=== PATIENT | female | born 1975 | race African-American/Black ===

== ENCOUNTER → 2016-10-23 | Outpatient (CLI) | payer OTHER ==
[~2016-10-23] MED LIST: ABILIFY PO; VITAMIN B12 PO
== END | disposition home or self-care (01) ==
LOC: CSSDAY 12:00
DX: D50.0 Iron deficiency anemia secondary to blood loss (chronic) (principal); N92.0 Excessive and frequent menstruation with regular cycle; K90.9 Intestinal malabsorption, unspecified
CPT/HCPCS: 36415; 36430; 86850; 86900; 86901; 86923; 96374; J1200; J1940; P9016; Q0138

== ENCOUNTER 2016-10-26 16:34 | Emergency (ER) | payer OTHER ==
--- NOTE | ~2016-10-26 | US84 ---
[id number] [facility] [address] [place], [place] [address] [id number] E MR#: [id number] Acc #: [id number] NAME: SUYAPA CARRERA : 1975 SEX: F STUDY DATE/TIME: 10/26/2016 19:35 UNIT: [facility] ROOM: STUDY DESCRIPTION: US LE Veins Complete Shon Stdy Attending Physician: Josué Lizama M.D. Ordering Physician: Josué Lizama M.D. Primary Care Physician: Primary Care Physician No MEDICAL IMAGING REPORT This report is preliminary unless electronic signature is present EXAM Bilateral lower extremity venous duplex ultrasound, 10/26/2016 HISTORY 41-year-old female with bilateral lower extremity pain and swelling for 1.5 months. COMPARISON None. FINDINGS Real-time ordoñez-scale, color Doppler, and spectral Doppler analysis of the bilateral lower extremity deep venous system demonstrates normal venous waveforms with normal compressibility and augmentation throughout. No evidence of bilateral lower extremity deep venous thrombosis. IMPRESSION Negative for bilateral lower extremity DVT. Dictated by... Bam Ewing M.D. THIS IS AN ELECTRONICALLY VERIFIED REPORT Bam Ewing M.D. at 10/27/2016 9:07 AM JEANNIE/deon TD: 10/26/2016 23:48 JOB #: [id number] MEDICAL IMAGING REPORT Page 1 of 1 COPY
[2016-10-26 18:33] LABS: BASOPHIL# 0.1 X10e3 (0-0.3); BASOPHIL% 1.6 % (0-2.5); EOSINOPHIL# 0.1 X10e3 (0-0.7); EOSINOPHIL% 0.9 % (0.0-7.0); HEMATOCRIT 35.2 % (35.0-45.0); HEMOGLOBIN 10.5 gm/dL (12.0-16.0); LYMPHOCYTE# 2.2 X10e3 (1.0-3.5); MEAN CELL VOLUME 67.5 FL (83-96); MEAN CORPUSCULAR HEMOGLOBIN 20.1 PG (28-34); MEAN CORPUSCULAR HGB CONC 29.7 g/dL (30-36); MEAN PLATELET VOLUME 9.2 FL (6.5-11.5); MONOCYTE# 0.6 X10e3 (0-1.0); MONOCYTE% 7.4 % (3.0-12.0); NEUTROPHIL# 5.6 X10e3 (1.5-7.1); NEUTROPHIL% 65.1 % (40-75); PLATELET COUNT 315 X10e3 (140-420); RED BLOOD COUNT 5.22 X10e (3.90-5.30); WHITE BLOOD COUNT 8.7 X10e3 (4.0-10.5)
[2016-10-26 18:36] LABS: DIFF IND YES
[2016-10-26 18:48] LABS: ALBUMIN SERUM 4.6 g/dL (3.5-5.0); BILIRUBIN,TOTAL 0.7 mg/dL (0.2-2.0); CALCIUM SERUM 9.2 mg/dL (8.4-10.2); CREATININE SERUM 0.7 mg/dL (0.6-1.4); GLOM FILT RATE Estimated 126.5 mL/min (>60); POTASSIUM 3.9 mmol/L (3.5-5.1); PROTEIN TOTAL SERUM 7.4 g/dL (6.0-8.3)
[2016-10-26 19:01] LABS: HYPOCHROMIA MOD; NUCLEATED RED BLOOD CELL 1 /100 (0); PLATELET ESTIMATE NORMAL (NORMAL); POIKILOCYTOSIS MOD
[2016-10-26 19:02] LABS: POLYCHROMASIA SL
== END 2016-10-26 20:45 | disposition home or self-care (01) ==
LOC: CED 16:34
PROVIDERS: Emergency Medicine
DX: R60.0 Localized edema (principal); F20.0 Paranoid schizophrenia; Z79.899 Other long term (current) drug therapy
CPT/HCPCS: 36415; 80053; 83880; 84703; 85025; 93970; 99284